=== PATIENT | male | born 1975 | race Caucasian/White ===

== ENCOUNTER 2017-04-12 08:18 | Emergency (ER) | payer OTHER ==
--- NOTE | 2017-04-12 08:29 | Emergency Department Record ---
History of Present Illness - General Chief complaint: Extremity Problem Stated complaint: RING FINGER INJURY LEFT Time Seen by Provider: 04/12/17 08:24 Source: Patient Mode of Arrival: Ambulatory Limitations: No limitations - History of Present Illness Initial comments: 41 yo male presents after and injury to his left ring finger. 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 He injured his distal finger through the nail. He is right handed. He is unsure of his last tetanus shot. MD Complaint: Extremity pain -: Minutes(s) Location: Left History of Same: No Radiation: Distal Quality: Aching Consistency: Constant Improves with: Nothing Worsens with: Palpation Associated Symptoms: Denies other symptoms - Related Data Previous Rx's Medication Instructions Recorded Cephalexin [Keflex] 500 mg PO QID #28 cap 04/12/17 Hydrocodone/Acetaminophen [Hollytree 1 each PO Q8H #15 tablet 04/12/17 5-325 Tablet] Allergies Allergy/AdvReac Type Severity Reaction Status Date / Time No Known Drug Allergies Allergy Verified 04/12/17 08:31 Review of Systems Constitutional: Denies: Chills, Fever, Weakness Eyes: Denies: Eye discharge ENT: Denies: Congestion, Throat pain Respiratory: Denies: Cough Cardiovascular: Denies: Chest pain, Palpitations, Syncope Endocrine: Denies: Fatigue Gastrointestinal: Denies: Abdominal pain, Diarrhea, Vomiting Genitourinary: Denies: Dysuria, Frequency, Hematuria Musculoskeletal: Reports: As per HPI, Arthralgia Skin: Denies: Bruising, Change in color, Rash Neurological: Denies: Headache, Numbness, Weakness Psychiatric: Denies: Anxiety Hematological/Lymphatic: Denies: Blood Clots, Easy bleeding, Easy bruising, Swollen glands Physical Exam - General General Appearance: Alert, Oriented x3, Cooperative, No acute distress Limitations: No limitations - Head Head exam: Atraumatic, Normocephalic, Normal inspection - Eye Eye exam: Normal appearance. negative: Conjunctival injection, Periorbital swelling - ENT ENT exam: Normal exam Ear exam: Normal external inspection Nasal Exam: Normal inspection Mouth exam: Normal external inspection - Neck Neck exam: Normal inspection - Respiratory Respiratory exam: Normal lung sounds bilaterally. negative: Respiratory distress - Cardiovascular Cardiovascular Exam: Regular rate, Normal rhythm, Normal heart sounds Peripheral Pulses: 2+: Radial (L) - Rectal Rectal exam: Deferred - exam: Deferred - Extremities Extremities exam: Full ROM, Normal capillary refill, Tenderness. negative: Normal inspection Image of Finger Tip: 1 - avulsion type injury with missing nail through the central nail with very loose adherent proximal and distal nail 2 - both the distal and the proxial nais are avulsed and very loosely adherent with some mild superficail skin avulsion at the nail fold as well. - Back Back exam: Reports: Full ROM - Neurological Neurological exam: Alert, Normal gait, Oriented X3 - Psychiatric Psychiatric exam: Normal affect, Normal mood - Skin Skin exam: Dry, Normal color, Warm. negative: Intact (finger nail laceration) Course - Reevaluation(s) Reevaluation #1: The wound was evaluated No FB The area was prepped with betadine LIdocaine and Bupivicaine 4.5ml used for digital block XR ordered The wound was soaked in ShurClens 04/12/17 08:30 04/12/17 09:32 The XR was reviewed. There is a distal tip fracture The distal finger tip laceration with nail avulsion was copiously irrigated with NS Minimal damaged avulsed tissue was debrided The area was inspected for obvious FB. No FB seen The area was again copiously irrigated with NS The nail bed injury was approximated with 4-0 Vicryl with 3 sutures Given the open nature of the injury and nail with nail bed injury the patient will be referred to hand surgery for his work related injury. 04/12/17 10:19 A referral was sent to DR Reich for outpatient follow up of his distal nail avulsion, fracture RX for Keflex and Hollytree provided Disposition Disposition: Discharge Clinical Impression: Open finger fracture Nail avulsion, finger Qualifiers: Encounter type: initial encounter Qualified Code(s): S61.309A - Unspecified open wound of unspecified finger with damage to nail, initial encounter Disposition: Home, Self-Care Condition: (2) Stable Additional Instructions: Call Dr Reich today for close follow up Keep the dressing on at all times Take the Keflex 4 times daily Prescriptions: Cephalexin [Keflex] 500 mg PO QID #28 cap Hydrocodone/Acetaminophen [Hollytree 5-325 Tablet] 1 each PO Q8H #15 tablet Referrals: SILVERIO REICH M.D. [MEDICAL DOCTOR] - Forms: Patient Portal Access Time of Disposition: 09:39 Quality - Quality Measures Quality Measures: N/A - Blood Pressure Screening Does Patient Have Any of the Following: No Blood Pressure Classification: Normal BP Reading Systolic Measurement: 118 Diastolic Measurement: 72 Screening for High Blood Pressure: < Normal BP, F/U Not Required > [[id number]] Pre-Hypertensive Follow-up Interventions: Referral to alternative/primary care provider.
[2017-04-12] MEDS ORDERED: TETANUS AND DIPHTHERIA PF 0.5 ML SYR IM ONE (08:34)
[2017-04-12] MEDS ORDERED: Diph,Pert(Acell),Tet Vac 0.5 ML SYR IM ONE (08:35)
[2017-04-12] MEDS ORDERED: CEFAZOLIN 2 Gram 2 GM/50 ML BAG IVPB ONE (09:02)
[2017-04-12 09:10] LABS: AMPHETAMINE SCREEN URINE DETECTED; BARBITURATE SCREEN URINE NOT DETECTED; BENZODIAZEPINE SCREEN URINE NOT DETECTED; COCAINE SCREEN URINE NOT DETECTED; METHADONE SCREEN URINE NOT DETECTED; METHAMPHETAMINE SCREEN DETECTED; OPIATE SCREEN URINE NOT DETECTED; OXYCODONE SCREEN URINE NOT DETECTED; PHENCYCLIDINE SCREEN URINE NOT DETECTED; PROPOXYPHENE SCREEN URINE NOT DETECTED; THC SCREEN URINE DETECTED; TRICYCLIC ANTIDEPRESSANT SCRN NOT DETECTED
--- NOTE | 2017-04-13 07:53 | RADIOLOGY REPORT ---
EXAM: LEFT FOURTH FINGER, THREE VIEWS HISTORY: CAUGHT LEFT FOURTH FINGER IN [employer] [place]. TECHNIQUE: Three views of the left fourth finger were obtained. Comparison: None. Encounter: Initial. FINDINGS: There is an acute mildly comminuted nondisplaced fracture involving the distal tuft of the left fourth distal phalanx. No radiodense foreign body. IMPRESSION: ACUTE MILDLY COMMINUTED NONDISPLACED FRACTURE DISTAL TUFT LEFT FOURTH DISTAL PHALANX. NO RADIODENSE FOREIGN BODY. JOB NUMBER: [id number] MTDD
== END 2017-04-12 09:59 | disposition home or self-care (01) ==
LOC: ER 08:18
DX: S62.635B Displaced fracture of distal phalanx of left ring finger, initial encounter for open fracture (principal); W31.89XA Contact with other specified machinery, initial encounter; Y92.63 Factory as the place of occurrence of the external cause
CPT/HCPCS: 11760; 73140; 80305; 90715; 96365; 96372; 99283; 99284